=== PATIENT | female | born 1960 | race Caucasian/White ===

== ENCOUNTER 2018-02-02 06:58 | Inpatient (IN) | payer OTHER ==
[~2018-02-02] VITALS: Ht 170.2 cm; Wt 107.5 kg
[2018-02-02 08:59] LABS: APPEARANCE CLEAR ((CLEAR)); BILIRUBIN NEGATIVE; BLOOD NEGATIVE; COLOR YELLOW ((YELLOW)); GLUCOSE (STRIP) NEGATIVE; KETONES NEGATIVE; LEUKOCYTES SMALL; NITRITE NEGATIVE; PROTEIN (STRIP) NEGATIVE; UROBILINOGEN 0.2 MG/DL (0.2-1.0)
[2018-02-02 09:12] LABS: BACTERIA NONE SEEN /HPF; EPITHELIAL CELLS RARE /HPF; HYALINE CASTS 0-5 /LPF; MUCUS TRACE /LPF; RED BLOOD CELLS 0-5 /HPF (0-5); UCUL ADDED? YES
[2018-02-02] MEDS ORDERED: PREDNISONE5 MG PO (10:08)
[2018-02-02] MEDS ORDERED: PAROXETINE HCL25 MG PO (10:08)
[2018-02-02] MEDS ORDERED: PLAQUENIL200 MG PO (10:09)
[2018-02-02] MEDS ORDERED: LEVO-T175 MCG PO (10:09)
[2018-02-02] MEDS ORDERED: VITAMIN D2000 UNIT PO (10:10)
[2018-02-02] MEDS ORDERED: TOPROL XL25 MG PO (10:10)
[2018-02-02] MEDS ORDERED: LOTREL 5/101 CAPSULE PO (10:10)
[2018-02-02] MEDS ORDERED: LOW DOSE ASPIRI81 M1 PO (10:10)
[2018-02-02 10:18] LABS: HEMATOCRIT 36.2 % (36.0-46.0); MCH 28.4 PG (29.0-34.0); MCHC 33.1 G/DL (30.0-36.0); MCV 85.6 FL (83-99); PLATELET COUNT 278 K/uL (156-360); RBC DIS.WIDTH-CV 13.2 % (11.8-14.6); RBC DIS.WIDTH-SD 40.8 % (39-53); RED BLOOD COUNT 4.23 M/uL (3.80-5.20); WHITE BLOOD COUNT 6.1 K/uL (4.1-10.2)
[2018-02-02 10:30] LABS: CHLORIDE 104 mEq/L (99-109); POTASSIUM 4.2 mEq/L (3.7-5.4); SODIUM 141 mEq/L (136-147)
[2018-02-02 10:32] LABS: GLUCOSE 101 mg/dL (70-99)
[2018-02-02 10:36] LABS: CREATININE 0.9 mg/dL (0.6-1.3); GFR ESTIMATE (CALCULATED) > 59 mL/min/
[2018-02-02 10:37] LABS: UREA NITROGEN (BUN) 15 mg/dL (9-23)
[2018-02-02 16:00] VITALS: BP 148/76
[2018-02-02 19:59] VITALS: BP 128/68
[2018-02-03] VITALS (7 sets, daily range): BP systolic 102–180; BP diastolic 56–91
[2018-02-04 03:35] VITALS: BP 128/73
[2018-02-04 08:00] VITALS: BP 141/78
[2018-02-04 11:42] VITALS: BP 99/57
[2018-02-04 12:39] VITALS: BP 106/61
[2018-02-04] MEDS ORDERED: ANTISEPTIC SKI237 ML TP (16:22)
[2018-02-04 19:00] VITALS: BP 115/68
[2018-02-04 23:39] VITALS: BP 100/56
[2018-02-05 04:26] VITALS: BP 131/65
[2018-02-05 07:38] VITALS: BP 110/59
[2018-02-05 11:37] VITALS: BP 123/74
[2018-02-05 15:30] VITALS: BP 152/77
[2018-02-05 21:36] VITALS: BP 152/79
[2018-02-05] MEDS ORDERED: ENDOCET 5-3251 EACH PO (22:49)
[2018-02-05] MEDS ORDERED: DOCUSATE SODIU100 MG PO (22:49)
[2018-02-06 00:12] VITALS: BP 138/69
[2018-02-06 07:52] VITALS: BP 119/63
[2018-02-06 16:19] VITALS: BP 137/63
[2018-02-07 00:10] VITALS: BP 135/60
[2018-02-07 04:22] VITALS: BP 143/56
[2018-02-07 07:39] VITALS: BP 110/59
[2018-02-07 08:23] VITALS: BP 118/64
== END 2018-02-07 14:06 | disposition home or self-care (01) | DRG 519 ==
LOC: EME 06:58 → EDOF 09:56 → 4SOUTH 09:56 → ENRESERV 09:59 → 4SOUTH 10:49 → 3EAST 02-03 09:56 → 4SOUTH 02-03 09:56 → ENRESERV 02-05 23:14 → 3EAST 02-05 23:35
PROVIDERS: Hospitalist; Nurse Practitioner Family
PROC: 0SB20ZZ Excision of Lumbar Vertebral Disc, Open Approach (ICD-10-PCS; principal; 2018-02-05)
DX: M51.16 Intervertebral disc disorders with radiculopathy, lumbar region (principal); E05.00 Thyrotoxicosis with diffuse goiter without thyrotoxic crisis or storm; M79.605 Pain in left leg; I10 Essential (primary) hypertension; F41.9 Anxiety disorder, unspecified; C64.9 Malignant neoplasm of unspecified kidney, except renal pelvis; Z96.653 Presence of artificial knee joint, bilateral; M32.9 Systemic lupus erythematosus, unspecified; M54.30 Sciatica, unspecified side; G89.29 Other chronic pain; E66.9 Obesity, unspecified; Z68.37 Body mass index [BMI] 37.0-37.9, adult; Z85.528 Personal history of other malignant neoplasm of kidney; Z90.5 Acquired absence of kidney; Z74.01 Bed confinement status; F32.9 Major depressive disorder, single episode, unspecified; E89.0 Postprocedural hypothyroidism; G58.9 Mononeuropathy, unspecified; T40.2X5A Adverse effect of other opioids, initial encounter; K59.03 Drug induced constipation
CPT/HCPCS: 72020; 72148; 76000; 80048; 81003; 82948; 85027; 87086; 94799; 99281; 99285; G0378; J0690; J1100; J1644; J1885; J2250; J2270; J2405; J2710; J3010; J3480; J7512; J7643